=== PATIENT | female | born 1955 | race Caucasian/White ===

== ENCOUNTER 2019-10-21 15:06 | Emergency (ER) | payer MEDICARE, MEDICAID ==
[~2019-10-21] VITALS: Ht 160 cm; Wt 71.7 kg
[2019-10-21 15:47] VITALS: Ht 160 cm; Wt 71.7 kg
[2019-10-21 19:11] LABS: BASOPHIL % 0.1 % (0-2); PLATELET COUNT 348 x10^3mcL (130-400)
[2019-10-21 19:15] LABS: RED CELL DISTRIBUTION WIDTH 16.3 % (11.5-14.5)
[2019-10-21 19:31] LABS: CALCIUM 9.6 mg/dL (8.5-10.1); CARBON DIOXIDE 24.1 mmol/L (21-32); CREATININE SERUM 1.2 mg/dL (0.6-1.0); POTASSIUM SERUM 4.3 mmol/L (3.5-5.1)
[2019-10-21 20:17] VITALS: BP 165/89
[2019-10-21 20:17] LABS: microscopic required? YES; urine erythrocyte 1+ (NEGATIVE)
== END 2019-10-21 20:17 | disposition home or self-care (01) ==
LOC: ED 15:06
PROVIDERS: Emergency Medicine
DX: I10 Essential (primary) hypertension (principal); R51 Headache; J02.9 Acute pharyngitis, unspecified; Z85.41 Personal history of malignant neoplasm of cervix uteri
CPT/HCPCS: J1100; J1200; J2765; J3475